=== PATIENT | male | born 1985 | race Caucasian/White ===

== ENCOUNTER 2021-11-21 11:00 | Emergency (ER) | payer MEDICAID, OTHER ==
[~2021-11-21] VITALS: Ht 154.9 cm; Wt 54.0 kg
--- NOTE | 2021-11-21 11:34 | NUR ---
PATIENT HAS A PAIR OF PRUNING VIKTORIYA IN HIS BACKPACK, THAT WERE REMOVED AND PLACED IN HOLDING WITH SECURITY.
[2021-11-21] MEDS ORDERED: NO HOME MEDS (11:47)
[2021-11-21 12:06] LABS: BASOPHILS % (AUTO) 0.3 % (0-1); EOSINOPHILS % (AUTO) 0.3 % (0-6); HEMOGLOBIN 13.9 g/dl (14.0-17.9); LYMPHOCYTES % (AUTO) 13.3 % (21-51); MEAN CORPUSCULAR HEMOGLOBIN 30.3 PG (27.0-31.0); MEAN CORPUSCULAR HGB CONC 33.9 g/dL (33.0-36.5); MEAN CORPUSCULAR VOLUME 89.4 FL (78-98); MEAN PLATELET VOLUME 8.4 FL (7.4-10.4); MONOCYTES # (AUTO) 0.8 X10'3 (0-0.9); MONOCYTES % (AUTO) 10.8 % (2-12); NEUTROPHILS # (AUTO) 5.5 X10'3 (1.8-7.7); NEUTROPHILS % (AUTO) 75.3 % (42-75); PLATELET COUNT 235 X10'3 (140-440); RED BLOOD COUNT 4.58 X10'6 (4.70-6.10); RED CELL DISTRIBUTION WIDTH 13.3 % (11.5-14.5); WHITE BLOOD COUNT 7.3 X10'3 (4.5-11.0)
[2021-11-21 12:23] LABS: ALANINE AMINOTRANSFERASE 34 U/L (12-78); ALBUMIN 4.5 G/DL (3.4-5.0); ALBUMIN/GLOBULIN RATIO 1.2 (1.1-1.5); ALKALINE PHOSPHATASE 88 IU/L (46-116); ANION GAP 13 (8-16); ASPARTATE AMINO TRANSFERASE 54 U/L (10-37); BILIRUBIN,TOTAL 0.6 MG/DL (0.1-1.0); BLOOD UREA NITROGEN 20 MG/DL (7-18); BUN/CREATININE RATIO 21.1 (5.4-32.0); CALCIUM 9.4 MG/DL (8.5-10.1); CHLORIDE 105 MMOL/L (99-107); CREATININE 0.95 MG/DL (0.60-1.10); GLUCOSE 101 MG/DL (70-104); POTASSIUM 3.7 MMOL/L (3.5-5.1); SODIUM 142 MMOL/L (135-145); TOTAL CARBON DIOXIDE 24.4 MMOL/L (24-32); TOTAL PROTEIN 8.2 G/DL (6.4-8.2); eGFR > 90 ML/MIN
[2021-11-21 12:26] LABS: ETHANOL < 0.010 GM/DL (0.0-0.010)
--- NOTE | 2021-11-21 14:15 | NUR ---
Pt brought over from main ER. His 5150 is invalid. Notified [facility] and that an order for a 1799.11 is needed. [facility] to evaluate for a 5150.
[2021-11-21 14:28] LABS: URINE AMPHETAMINE SCREEN NEGATIVE (Neg); URINE BARBITUATE SCREEN NEGATIVE (Neg); URINE BENZODIAZEPINES SCREEN NEGATIVE (Neg); URINE CANNABINOID SCREEN POSITIVE (Neg); URINE COCAINE SCREEN NEGATIVE (Neg); URINE METHADONE SCREEN NEGATIVE (Neg); URINE OPIATE SCREEN NEGATIVE (Neg); URINE PHENCYCLIDINE SCREEN NEGATIVE (Neg)
--- NOTE | 2021-11-21 16:10 | NUR ---
Pt has been resting on his right side. He appears to be sleeping. RR even and unlabored.
--- NOTE | 2021-11-21 17:00 | NUR ---
Pt remains sleeping on his right side. Appears comfortable. RR even and unlabored.
--- NOTE | 2021-11-21 17:38 | NUR ---
[facility] will re-evaluate for a 5150.
--- NOTE | 2021-11-21 18:58 | NUR ---
One to one with the patient to assess for severity of altered thought processes. He appears to be responding to internal stimuli. When asked he appeared distracted by internal stimuli. He is unable to verbalize a plan for food, nursing home or clothing. He is making gestures in the air and stated that he is talking with his mother. He denies depression or SI or DTO. He is declining offer of medications. He is eating his dinner and can't recall when he last slept. He denies D and A use
--- NOTE | 2021-11-21 19:02 | NUR ---
Reportedly the patient has not been seen by [facility] 2nd to his 5150 being invalid and discussed with Dr. Randhawa and 179 to be written.
[2021-11-21] MEDS: OLANZapine 2.5MG tablet PO SCH ×2 (20:00→20:10)
--- NOTE | 2021-11-21 20:01 | NUR ---
The patient is grunting loudly in response to internal stimuli. Spoke with Meghann PENNY who has given order for medications.
--- NOTE | 2021-11-21 20:14 | NUR ---
The patient is refusing all offers of medication. He has very poor insight.
--- NOTE | 2021-11-21 20:28 | NUR ---
HS snack given
--- NOTE | 2021-11-21 21:30 | NUR ---
The patient is awake and staring at the nursing station. He can occasionally seen talking to himself or to people who are no there
--- NOTE | 2021-11-21 21:34 | NUR ---
The patient up to the nursing station and attempted to put his arms around staff but backed away when redirected. The patient is responding to internal stimuli. He made an odd statement about being delirious and then went and is back on his bed and laughing to himself.
--- NOTE | 2021-11-21 22:11 | NUR ---
The patient remains awake and staring into the nursing station from his bed
--- NOTE | 2021-11-21 22:46 | NUR ---
The patient is disorganized. Making hand gestures in the air. Thanking staff for giving him a place to stay
--- NOTE | 2021-11-21 23:02 | NUR ---
RECORDS SENT TO [facility]
--- NOTE | 2021-11-21 23:22 | NUR ---
The patient is laughing and talking to people who are not there.
--- NOTE | 2021-11-22 00:04 | NUR ---
The patient is resting on his bed with his eyes closed
--- NOTE | 2021-11-22 01:12 | NUR ---
The patient appears to be sleeping
--- NOTE | 2021-11-22 03:13 | NUR ---
The patient appears to be sleeping
[2021-11-22] MEDS ORDERED: LORazepam 2 mg/ml vial ONE (04:51)
[2021-11-22] MEDS ORDERED: haloperidol lactate 5mg/ml inj ONE (04:51)
[2021-11-22] MEDS ORDERED: diphenhydrAMINE 50 mg/ml inj ONE (04:52)
--- NOTE | 2021-11-22 05:04 | NUR ---
The patient ran ubrutly to the nursing station and lunged towards staff. He did not respond to redirection. When ER staff and security staff intervened he became combative. He was placed in restraints. He is not responding verbally. He is very psychotic.
--- NOTE | 2021-11-22 05:43 | NUR ---
The patient is calm and cooperative at this time
--- NOTE | 2021-11-22 06:46 | NUR ---
Patient is sleeping on his left side in bed. He has self repositioned. In view from nurses station.
--- NOTE | 2021-11-22 07:37 | NUR ---
Patient is sleeping on his left side. No distress noted.
--- NOTE | 2021-11-22 09:21 | NUR ---
Patient is now sleeping on his right side. He has self repositioned.
--- NOTE | 2021-11-22 12:20 | NUR ---
Patient jumped out of bed, began searching overflow for his clothing. Security called. This grant writer directed patient back to bed. The patient looks to be exhibiting external stimuli at times.
--- NOTE | 2021-11-22 12:45 | NUR ---
Patient interviewed by [facility], he will be kept on a 5150.
[2021-11-22] MEDS ORDERED: OLANZapine **IM** 10 mg inj. IM ONE (13:20)
--- NOTE | 2021-11-22 15:35 | NUR ---
[facility] office called. They state [facility] is considering admitting this patient. A UA and a TSH is needed. HEMALATHA Zendejas was advised. She will order.
--- NOTE | 2021-11-22 17:58 | NUR ---
Patient is sleeping quietly, low fowlers position in bed.
--- NOTE | 2021-11-22 19:24 | NUR ---
Pt is sleeping on back respirations 16
[2021-11-22] MEDS: OLANZapine 2.5MG tablet PO SCH (21:00)
--- NOTE | 2021-11-22 22:11 | NUR ---
pt wakes up requesting food, pt given sandwhich, juice. PT also requests change of clothes. PT given new green scrubs, hygeine products which he uses.
--- NOTE | 2021-11-22 22:12 | NUR ---
PT refuses HS zyprexa stating "that sounds like it will put me to sleep forever." RN reassures pt that it will not put him to sleep forveer, educates pt on the med, but he is still to hesitant to take it.
--- NOTE | 2021-11-22 22:17 | NUR ---
ACCEPTED BY AT 22:00 ON 11/22/21 TO [facility]
--- NOTE | 2021-11-22 23:14 | NUR ---
PT STILL HAS NOT URINATED, PT HAS BEEN ENCOURAGED TO DRINK WATER WHICH HE HAS ALONG WITH JUICE
--- NOTE | 2021-11-23 02:01 | NUR ---
PT SAID HE WENT TO THE BATHROOM AND URINATED IN A CUP, BUT THE CUP WAS FILLED WITH CLEAR, COLD LIQUID.
--- NOTE | 2021-11-23 03:41 | NUR ---
pt sitting up in bed mumbling to himself
--- NOTE | 2021-11-23 03:44 | NUR ---
pt is stnading in front of his bed doing yoga like poses and checking his pockets repeatedly
[2021-11-23 05:12] VITALS: BP 129/88
--- NOTE | 2021-11-23 07:07 | NUR ---
Received Pt awake and watching TV. Pt up to bathroom and drinking water. Pt pleasant when asked to lower volume om the TV.
[2021-11-23 08:55] LABS: CLARITY,URINE CLEAR (Clear); GLUCOSE, URINE NEGATIVE (Neg); KETONES,URINE NEGATIVE (Neg); LEUKOCYTE ESTERASE ,URINE NEGATIVE (Neg); NITRITES, URINE NEGATIVE (Neg); OCCULT BLOOD,URINE NEGATIVE (Neg); PROTEIN,URINE NEGATIVE (Neg); UROBILINOGEN,URINE 0.2 E.U/dL (0.2-1.0)
[2021-11-23 08:57] LABS: COLOR,URINE STRAW (Yellow); UA COLLECTION TYPE NON-SPECIFIED
--- NOTE | 2021-11-23 09:00 | NUR ---
Pt ate breakfast and provided urine for UA. Pt remains pleasant and appreciative and looks forward to leaving.
--- NOTE | 2021-11-23 10:40 | NUR ---
Pt placed in civilian clothes and belongings returned. Pt left ER with [facility] caterpillar driver to go to [facility] in-pt MH unit.
== END 2021-11-23 11:04 ==
LOC: ER 11:00
DX: F29 Unspecified psychosis not due to a substance or known physiological condition (principal); F32.9 Major depressive disorder, single episode, unspecified; F20.9 Schizophrenia, unspecified; Z20.822 Contact with and (suspected) exposure to COVID-19
CPT/HCPCS: 36415; 80053; 80305; 80320; 81003; 84443; 85025; 87635; 96372; 99285; C9803; J1200; J1630; J2060